=== PATIENT | female | born 1955 | race Caucasian/White ===

== ENCOUNTER 2016-06-27 18:10 | Inpatient (IN) | payer BC ==
[~2016-06-27] VITALS: Ht 142.2 cm; Wt 37.5 kg
[~2016-06-27 18:10] MED LIST: ASMANEX TW200 MICRO1 IH; CALAN SR,COVER240 MG PO; DUONEB 2.5-0.5 M3 ML IH; ERGOCALCIF50000 UNIT PO; HYDROCODON-ACE1 EAC7 PO; LASIX20 MG PO; LASIX40 MG PO; LEVOFLOXACIN750 MG PO; LOVENOX40 MG/0.4 SC; PANTOPRAZOLE SO40 MG PO; PREDNISONE20 MG PO; PROTONIX40 MG PO; VENTOLIN HFA18 GM IH; VITAMIN B-12; VITAMIN B-122500 MCG SL; VITAMIN D250000 UNIT PO; ZITHROMAX Z-PA250 MG PO
[2016-06-27 18:53] LABS: HEMATOCRIT 35.3 % (36.0-46.0); MCH 31.2 PG (29.0-34.0); MCHC 34.6 G/DL (30.0-36.0); MCV 90.3 FL (83-99); MEAN PLAT.VOLUME 8.8 uM^3 (9.5-12.4); PLATELET COUNT 308 K/uL (156-360); RBC DIS.WIDTH-CV 13.5 % (11.8-14.6); RBC DIS.WIDTH-SD 44.3 % (39-53); RED BLOOD COUNT 3.91 M/uL (3.80-5.20)
[2016-06-27 19:01] LABS: CHLORIDE 93 mEq/L (99-109); POTASSIUM 3.9 mEq/L (3.7-5.4); SODIUM 132 mEq/L (136-147)
[2016-06-27 19:03] LABS: GLUCOSE 173 mg/dL (70-99)
[2016-06-27 19:04] LABS: ANION GAP 13 MEQ/L (2-14)
[2016-06-27 19:07] LABS: GFR ESTIMATE (CALCULATED) > 59 mL/min/
[2016-06-27 19:08] LABS: UREA NITROGEN (BUN) 11 mg/dL (9-23)
[2016-06-27] MEDS ORDERED: FUROSEMIDE20 MG PO (19:50)
[2016-06-27] MEDS ORDERED: VITAMIN B12 IM (19:53)
[2016-06-27] MEDS ORDERED: SODIUM PO (19:54)
[2016-06-27] MEDS ORDERED: CYANOCOBAL1000 MCG/2 IM (22:00)
[2016-06-27] MEDS ORDERED: SPIRIVA RESPIMAT4 GM IH (22:03)
[2016-06-27] MEDS ORDERED: VOLTAREN 1% GE100 GM TP (22:04)
[2016-06-28 06:03] LABS: CHLORIDE 100 mEq/L (99-109); POTASSIUM 3.1 mEq/L (3.7-5.4); SODIUM 132 mEq/L (136-147)
[2016-06-28 06:06] LABS: ANION GAP 8 MEQ/L (2-14)
[2016-06-28 06:07] LABS: GLUCOSE 93 mg/dL (70-99)
[2016-06-28 06:08] LABS: GFR ESTIMATE (CALCULATED) > 59 mL/min/
[2016-06-28 06:09] LABS: UREA NITROGEN (BUN) 8 mg/dL (9-23)
[2016-06-28 06:21] LABS: BASOPHIL COUNT 0.1 K/uL (0-0.1); EOSINOPHIL (%) 0 % (0-5); HEMATOCRIT 28.2 % (36.0-46.0); IMMATURE GRANULOCYTE (%) 0.9 % (0.0-0.7); IMMATURE GRANULOCYTE COUNT 0.3 K/uL; INSTRUMENT ABS NEUTROPHIL CT 26.8 K/uL; LYMPHOCYTE COUNT 1.1 K/uL (1.0-2.8); MCH 31.1 PG (29.0-34.0); MCHC 34.8 G/DL (30.0-36.0); MCV 89.5 FL (83-99); MEAN PLAT.VOLUME 8.7 uM^3 (9.5-12.4); MONOCYTE (%) 4.1 % (3-12); MONOCYTE COUNT 1.2 K/uL (0-0.8); NEUTROPHIL (%) 90.9 % (45-76); NEUTROPHIL COUNT 26.8 K/uL (1.8-6.4); PLATELET COUNT 246 K/uL (156-360); RBC DIS.WIDTH-CV 13.7 % (11.8-14.6); RBC DIS.WIDTH-SD 44.6 % (39-53); RED BLOOD COUNT 3.15 M/uL (3.80-5.20); WHITE BLOOD COUNT 29.5 K/uL (4.1-10.2)
[2016-06-28 07:01] LABS: ABS NEUTROPHIL COUNT 27.7; ATYPICAL LYMPHOCYTE 3.5 %; BAND NEUTROPHILS 34.2 % (0-8.0); EOSINOPHIL ABS CT 0; LYMPHOCYTES 1.8 % (15.0-45.0); PLAT.SUFFICIENCY ADEQUATE; SEG.NEUTROPHILS 59.6 % (46.0-76.0); TOX.VACUOLIZATION 1+; TOXIC GRANULATION 2+
[2016-06-28] MEDS ORDERED: [UNRECOGNIZED DRUG - REMARK] PO (10:18)
[2016-06-28 12:05] LABS: ADD MIUA? YES; BILIRUBIN NEGATIVE; BLOOD NEGATIVE; COLOR YELLOW ((YELLOW)); GLUCOSE (STRIP) NEGATIVE; KETONES NEGATIVE; LEUKOCYTES NEGATIVE; NITRITE NEGATIVE; PROTEIN (STRIP) 30; SPECIFIC GRAVITY 1.012 (1.000-1.030)
[2016-06-28 12:14] LABS: BACTERIA NONE SEEN /HPF; CALCIUM OXALATE CRYSTALS 3+ /HPF; EPITHELIAL CELLS 2+ /HPF; MUCUS NONE SEEN /LPF; RED BLOOD CELLS 0-5 /HPF (0-5); UCUL ADDED? NO; WHITE BLOOD CELLS 0-5 /HPF (0-5)
[2016-06-28 18:51] VITALS: BP 101/66
[2016-06-29] VITALS: BP 114/66
[2016-06-29 03:29] VITALS: BP 96/59
[2016-06-29 06:56] LABS: INTERNAL CONTROL VALID? YES
[2016-06-29 08:02] VITALS: BP 95/57
[2016-06-29 10:39] LABS: HEMATOCRIT 28.2 % (36.0-46.0); MCHC 33.7 G/DL (30.0-36.0); MCV 92.2 FL (83-99); MEAN PLAT.VOLUME 9.1 uM^3 (9.5-12.4); PLATELET COUNT 259 K/uL (156-360); RBC DIS.WIDTH-CV 13.8 % (11.8-14.6); RBC DIS.WIDTH-SD 47.2 % (39-53); RED BLOOD COUNT 3.06 M/uL (3.80-5.20)
[2016-06-29 11:02] LABS: ANION GAP 10 MEQ/L (2-14); CHLORIDE 98 MEQ/L (99-109); GFR ESTIMATE (CALCULATED) > 59 mL/min/; POTASSIUM 3.2 MEQ/L (3.7-5.4); SAMPLE HEMOLYSIS CHECK 0; SAMPLE ICTERIC CHECK 0; SAMPLE LIPEMIA CHECK 0; SODIUM 132 MEQ/L (136-147); UREA NITROGEN (BUN) 7 mg/dL (9-23)
[2016-06-29 11:03] LABS: GLUCOSE 117 mg/dL (70-99)
[2016-06-29 11:09] VITALS: BP 99/55
[2016-06-29 14:14] LABS: ABS NEUTROPHIL COUNT 21.8; ATYPICAL LYMPHOCYTE 0.9 %; EOSINOPHIL ABS CT 0; LYMPHOCYTES 3.6 % (15.0-45.0)
[2016-06-29 14:28] LABS: BAND NEUTROPHILS 13.5 % (0-8.0); SEG.NEUTROPHILS 81.1 % (46.0-76.0)
[2016-06-29 14:58] VITALS: BP 100/56
[2016-06-29 20:00] VITALS: BP 123/69
[2016-06-30 00:17] VITALS: BP 117/65
[2016-06-30 04:00] VITALS: BP 116/66
[2016-06-30 07:25] VITALS: BP 137/79
[2016-06-30 08:31] LABS: ANION GAP 12 MEQ/L (2-14); CHLORIDE 99 MEQ/L (99-109); GFR ESTIMATE (CALCULATED) > 59 mL/min/; GLUCOSE 99 mg/dL (70-99); POTASSIUM 2.7 MEQ/L (3.7-5.4); SAMPLE HEMOLYSIS CHECK 0; SAMPLE ICTERIC CHECK 0; SAMPLE LIPEMIA CHECK 0; SODIUM 136 MEQ/L (136-147); UREA NITROGEN (BUN) 6 mg/dL (9-23)
[2016-06-30 08:39] LABS: MCH 30.9 PG (29.0-34.0); MCHC 33.4 G/DL (30.0-36.0); MCV 92.4 FL (83-99); MEAN PLAT.VOLUME 9.5 uM^3 (9.5-12.4); PLATELET COUNT 282 K/uL (156-360); RBC DIS.WIDTH-SD 47.4 % (39-53); RED BLOOD COUNT 3.14 M/uL (3.80-5.20)
[2016-06-30 08:41] LABS: WHITE BLOOD COUNT 14.3 K/uL (4.1-10.2)
[2016-06-30 09:54] LABS: EOSINOPHIL (%) 0.1 % (0-5); HEMATOLOGY COMMENT 1 SMEAR COMPATIBLE; IMMATURE GRANULOCYTE (%) 0.5 % (0.0-0.7); IMMATURE GRANULOCYTE COUNT 0.1 K/uL; INSTRUMENT ABS NEUTROPHIL CT 12.1 K/uL; LYMPHOCYTE COUNT 1.1 K/uL (1.0-2.8); MONOCYTE (%) 6.9 % (3-12); NEUTROPHIL (%) 84.7 % (45-76); NEUTROPHIL COUNT 12.1 K/uL (1.8-6.4); PLAT.SUFFICIENCY ADEQUATE
[2016-06-30 11:21] VITALS: BP 156/81
[2016-06-30 15:06] VITALS: BP 112/61
[2016-06-30 19:38] VITALS: BP 105/61
[2016-07-01 00:08] VITALS: BP 109/56
[2016-07-01 03:40] VITALS: BP 114/59
[2016-07-01 07:20] LABS: EOSINOPHIL (%) 0.1 % (0-5); HEMATOCRIT 26.1 % (36.0-46.0); IMMATURE GRANULOCYTE (%) 0.3 % (0.0-0.7); INSTRUMENT ABS NEUTROPHIL CT 6.4 K/uL; LYMPHOCYTE COUNT 1.4 K/uL (1.0-2.8); MCH 30.5 PG (29.0-34.0); MCHC 33.3 G/DL (30.0-36.0); MCV 91.6 FL (83-99); MEAN PLAT.VOLUME 9.1 uM^3 (9.5-12.4); MONOCYTE (%) 16.5 % (3-12); MONOCYTE COUNT 1.5 K/uL (0-0.8); NEUTROPHIL (%) 68.5 % (45-76); NEUTROPHIL COUNT 6.4 K/uL (1.8-6.4); PLATELET COUNT 254 K/uL (156-360); RBC DIS.WIDTH-CV 13.7 % (11.8-14.6); RBC DIS.WIDTH-SD 45.8 % (39-53); RED BLOOD COUNT 2.85 M/uL (3.80-5.20)
[2016-07-01 07:26] LABS: WHITE BLOOD COUNT 9.3 K/uL (4.1-10.2)
[2016-07-01 07:33] LABS: ANION GAP 10 MEQ/L (2-14); CHLORIDE 102 MEQ/L (99-109); GFR ESTIMATE (CALCULATED) > 59 mL/min/; GLUCOSE 73 mg/dL (70-99); SAMPLE HEMOLYSIS CHECK 0; SAMPLE ICTERIC CHECK 0; SAMPLE LIPEMIA CHECK 0; SODIUM 137 MEQ/L (136-147); UREA NITROGEN (BUN) 5 mg/dL (9-23)
[2016-07-01 07:37] LABS: POTASSIUM 3.5 MEQ/L (3.7-5.4)
[2016-07-01 08:01] VITALS: BP 125/82
[2016-07-01 12:18] VITALS: BP 120/75
[2016-07-01 14:38] VITALS: BP 118/82
[2016-07-01] MEDS ORDERED: CEFDINIR300 MG PO (14:46)
== END 2016-07-01 15:25 | disposition home or self-care (01) | DRG 871 ==
LOC: EME 18:10 → EXP 18:10 → 5SOUTH 20:57 → EDOF 20:57 → 5SOUTH 06-28 14:15
PROVIDERS: Internal Medicine; Physician Assistant; Physician Assistant Medical
DX: A41.9 Sepsis, unspecified organism (principal); J18.9 Pneumonia, unspecified organism; J44.0 Chronic obstructive pulmonary disease with (acute) lower respiratory infection; E87.6 Hypokalemia; I10 Essential (primary) hypertension; F17.200 Nicotine dependence, unspecified, uncomplicated; Z88.6 Allergy status to analgesic agent; Z88.8 Allergy status to other drugs, medicaments and biological substances; Z72.89 Other problems related to lifestyle
CPT/HCPCS: 71020; 80048; 81003; 83605; 85025; 85027; 87040; 87070; 87205; 87449; 94640; 94640 76; 99202; 99281; 99285; J0456; J0696; J1200; J1885; J1956; J2270; J3480; J7030; J7040; J7050; J7120

== ENCOUNTER → 2016-11-01 | Outpatient (CLI) | payer OTHER, BC ==
[~2016-11-01] MED LIST changes: +CEFDINIR300 MG PO; +CYANOCOBAL1000 MCG/2 IM; +FUROSEMIDE20 MG PO; +SODIUM PO; +SPIRIVA RESPIMAT4 GM IH; +VITAMIN B12 IM; +VOLTAREN 1% GE100 GM TP; +[UNRECOGNIZED DRUG - REMARK] PO
== END | disposition home or self-care (01) ==
LOC: RES 07:51
DX: Z02.71 Encounter for disability determination (principal)
CPT/HCPCS: 94060; 94729; 94760

== ENCOUNTER 2016-11-27 08:53 | Emergency (ER) | payer BC ==
[~2016-11-27] VITALS: Ht 147.3 cm; Wt 36.7 kg
[2016-11-27] MEDS ORDERED: KEFLEX500 MG PO (09:30)
[2016-11-27 09:55] VITALS: BP 133/74
== END 2016-11-27 09:55 | disposition home or self-care (01) ==
LOC: EME 08:53
DX: L23.5 Allergic contact dermatitis due to other chemical products (principal); T50.905A Adverse effect of unspecified drugs, medicaments and biological substances, initial encounter; J44.9 Chronic obstructive pulmonary disease, unspecified; I10 Essential (primary) hypertension; F17.200 Nicotine dependence, unspecified, uncomplicated
CPT/HCPCS: 99281; 99284

== ENCOUNTER 2016-12-22 14:58 | Observation (INO) | payer BC ==
[~2016-12-22] VITALS: Ht 147.3 cm; Wt 41.6 kg
[~2016-12-22 14:58] MED LIST changes: +KEFLEX500 MG PO
[2016-12-22 16:00] LABS: HEMATOCRIT 36.4 % (36.0-46.0); MCH 30.5 PG (29.0-34.0); MCHC 35.4 G/DL (30.0-36.0); MCV 86.1 FL (83-99); MEAN PLAT.VOLUME 8.4 uM^3 (9.5-12.4); PLATELET COUNT 273 K/uL (156-360); RBC DIS.WIDTH-CV 15.2 % (11.8-14.6); RED BLOOD COUNT 4.23 M/uL (3.80-5.20); WHITE BLOOD COUNT 7.8 K/uL (4.1-10.2)
[2016-12-22 16:08] LABS: CHLORIDE 83 mEq/L (99-109); POTASSIUM 3.1 mEq/L (3.7-5.4); SODIUM 127 mEq/L (136-147)
[2016-12-22 16:10] LABS: GLUCOSE 113 mg/dL (70-99)
[2016-12-22 16:12] LABS: ANION GAP 14 MEQ/L (2-14)
[2016-12-22 16:14] LABS: GFR ESTIMATE (CALCULATED) > 59 mL/min/
[2016-12-22 16:15] LABS: UREA NITROGEN (BUN) 6 mg/dL (9-23)
[2016-12-22 16:21] LABS: TROP-I INTERPRETATION NEGATIVE; TROPONIN-I < 0.01 ng/mL (0.0-0.30)
[2016-12-22 17:25] LABS: INFLUENZA A VIRAL ANTIGEN NEGATIVE; INFLUENZA B VIRAL ANTIGEN NEGATIVE
[2016-12-22] MEDS ORDERED: KEFLEX500 MG PO (18:17)
[2016-12-22] MEDS ORDERED: ADVAIR 250/501 DISK IH (18:24)
[2016-12-22] MEDS ORDERED: LASIX40 MG PO (18:24)
[2016-12-22] MEDS ORDERED: BETAMETHASONE D45 GM TP (18:25)
[2016-12-22 18:26] LABS: ADD MIUA? YES; BILIRUBIN NEGATIVE; BLOOD SMALL; COLOR YELLOW ((YELLOW)); GLUCOSE (STRIP) NEGATIVE; KETONES NEGATIVE; LEUKOCYTES LARGE; NITRITE NEGATIVE; PROTEIN (STRIP) 30; SPECIFIC GRAVITY 1.004 (1.000-1.030); UROBILINOGEN 0.2 MG/DL (0.2-1.0)
[2016-12-22 18:43] LABS: BACTERIA RARE /HPF; EPITHELIAL CELLS 1+ /HPF; MUCUS NONE SEEN /LPF; RED BLOOD CELLS 20-30 /HPF (0-5); WHITE BLOOD CELLS TNTC /HPF (0-5)
[2016-12-22 20:23] LABS: SODIUM 130 mEq/L (136-147)
[2016-12-22 20:27] LABS: ANION GAP 10 MEQ/L (2-14); TOTAL BILIRUBIN 0.5 mg/dL (0.0-1.0)
[2016-12-22 20:29] LABS: ALKALINE PHOSPHATASE 76 IU/L (3-129); GFR ESTIMATE (CALCULATED) > 59 mL/min/
[2016-12-22 20:30] LABS: CHLORIDE 94 mEq/L (99-109); GLUCOSE 170 mg/dL (70-99); POTASSIUM 4.1 mEq/L (3.7-5.4); UREA NITROGEN (BUN) 5 mg/dL (9-23)
[2016-12-22 20:31] LABS: DIRECT BILIRUBIN 0.3 mg/dL (0.0-0.3)
[2016-12-22 23:42] LABS: TROP-I INTERPRETATION NEGATIVE; TROPONIN-I < 0.01 ng/mL (0.0-0.30)
[2016-12-23 00:56] VITALS: BP 128/78
[2016-12-23 04:30] VITALS: BP 120/64
[2016-12-23 05:50] LABS: HEMATOCRIT 33.4 % (36.0-46.0); MCH 31.3 PG (29.0-34.0); MCHC 35.6 G/DL (30.0-36.0); MCV 87.9 FL (83-99); MEAN PLAT.VOLUME 8.9 uM^3 (9.5-12.4); PLATELET COUNT 261 K/uL (156-360); RBC DIS.WIDTH-CV 15.9 % (11.8-14.6); RBC DIS.WIDTH-SD 51.1 % (39-53); WHITE BLOOD COUNT 5.1 K/uL (4.1-10.2)
[2016-12-23 06:26] LABS: ANION GAP 5 MEQ/L (2-14); CHLORIDE 94 MEQ/L (99-109); GFR ESTIMATE (CALCULATED) > 59 mL/min/; GLUCOSE 133 mg/dL (70-99); POTASSIUM 3.6 MEQ/L (3.7-5.4); SAMPLE HEMOLYSIS CHECK 0; SAMPLE ICTERIC CHECK 0; SAMPLE LIPEMIA CHECK 0; SODIUM 131 MEQ/L (136-147); UREA NITROGEN (BUN) 5 mg/dL (9-23)
[2016-12-23 06:28] LABS: TROP-I INTERPRETATION NEGATIVE; TROPONIN-I < 0.01 ng/mL (0.0-0.30)
[2016-12-23 07:43] VITALS: BP 128/70
[2016-12-23] MEDS ORDERED: AZITHROMYCIN500 M1 PO (09:59)
[2016-12-23] MEDS ORDERED: PREDNISONE10 MG PO (10:05)
[2016-12-23] MEDS ORDERED: MEDROL DOSEPAK4 MG PO (10:05)
[2016-12-23 11:24] VITALS: BP 124/72
[2016-12-23] MEDS ORDERED: BACTRIM,SEPT1 TABLET PO (14:49)
== END 2016-12-23 11:32 | disposition home or self-care (01) ==
LOC: EME 14:58 → 5EAST 19:02 → EDOF 19:02 → ENRESERV 19:10 → CANRESERV 19:10 → ENRESERV 19:19 → 5EAST 21:10
PROVIDERS: Hospitalist; Physician Assistant
DX: J44.1 Chronic obstructive pulmonary disease with (acute) exacerbation (principal); R09.02 Hypoxemia; F17.200 Nicotine dependence, unspecified, uncomplicated; N39.0 Urinary tract infection, site not specified; E87.6 Hypokalemia; E87.1 Hypo-osmolality and hyponatremia; I10 Essential (primary) hypertension; I70.0 Atherosclerosis of aorta; K21.9 Gastro-esophageal reflux disease without esophagitis; Z86.19 Personal history of other infectious and parasitic diseases; Z87.01 Personal history of pneumonia (recurrent); Z86.718 Personal history of other venous thrombosis and embolism; Z82.49 Family history of ischemic heart disease and other diseases of the circulatory system; R00.0 Tachycardia, unspecified; R49.0 Dysphonia
CPT/HCPCS: 71020; 71275; 80048; 80048 91; 80076; 81003; 82436; 83605; 83930; 83935; 84133; 84300; 84443; 84484; 85027; 87040; 87502; 93005; 94640; 94640 76; 94799; 99202; 99281; 99284; G0378; J0696; J1650; J2930; J7030; J7050

== ENCOUNTER 2016-12-29 08:18 | Inpatient (IN) | payer BC ==
[~2016-12-29] VITALS: Ht 147.3 cm; Wt 37.5 kg
[~2016-12-29 08:18] MED LIST changes: +ADVAIR 250/501 DISK IH; +AZITHROMYCIN500 M1 PO; +BACTRIM,SEPT1 TABLET PO; +BETAMETHASONE D45 GM TP; +MEDROL DOSEPAK4 MG PO; +PREDNISONE10 MG PO
[2016-12-29 09:00] LABS: HEMATOCRIT 36.5 % (36.0-46.0); MCH 29.6 PG (29.0-34.0); MCHC 34.5 G/DL (30.0-36.0); MCV 85.7 FL (83-99); MEAN PLAT.VOLUME 8.4 uM^3 (9.5-12.4); PLATELET COUNT 346 K/uL (156-360); RBC DIS.WIDTH-CV 15.1 % (11.8-14.6); RBC DIS.WIDTH-SD 47.5 % (39-53); RED BLOOD COUNT 4.26 M/uL (3.80-5.20); WHITE BLOOD COUNT 12.8 K/uL (4.1-10.2)
[2016-12-29 09:05] LABS: CHLORIDE 89 mEq/L (99-109); POTASSIUM 3.5 mEq/L (3.7-5.4); SODIUM 132 mEq/L (136-147)
[2016-12-29 09:07] LABS: GLUCOSE 102 mg/dL (70-99)
[2016-12-29 09:08] LABS: ANION GAP 12 MEQ/L (2-14)
[2016-12-29 09:11] LABS: GFR ESTIMATE (CALCULATED) > 59 mL/min/
[2016-12-29 09:12] LABS: UREA NITROGEN (BUN) 6 mg/dL (9-23)
[2016-12-29 09:17] LABS: TROP-I INTERPRETATION NEGATIVE; TROPONIN-I < 0.01 ng/mL (0.0-0.30)
[2016-12-29] MEDS ORDERED: MEDROL DOSEPAK4 MG PO (12:16)
[2016-12-29] MEDS ORDERED: METHYLPREDNISOLO4 M1 PO (12:17)
[2016-12-29] MEDS ORDERED: VERAPAMIL HCL240 MG PO (12:18)
[2016-12-29] MEDS ORDERED: LASIX20 MG PO (12:19)
[2016-12-29 12:40] VITALS: BP 136/79
[2016-12-29 15:12] VITALS: BP 125/71
[2016-12-29 19:42] VITALS: BP 133/77
[2016-12-29 23:50] VITALS: BP 111/70
[2016-12-30 03:48] VITALS: BP 114/63
[2016-12-30 06:06] LABS: HEMATOCRIT 31.7 % (36.0-46.0); MCH 31.3 PG (29.0-34.0); MCHC 35.3 G/DL (30.0-36.0); MCV 88.5 FL (83-99); MEAN PLAT.VOLUME 8.3 uM^3 (9.5-12.4); PLATELET COUNT 309 K/uL (156-360); RBC DIS.WIDTH-CV 15.6 % (11.8-14.6); RBC DIS.WIDTH-SD 50.5 % (39-53); RED BLOOD COUNT 3.58 M/uL (3.80-5.20); WHITE BLOOD COUNT 6.3 K/uL (4.1-10.2)
[2016-12-30 06:29] LABS: ALKALINE PHOSPHATASE 48 IU/L (3-129); ANION GAP 8 MEQ/L (2-14); CHLORIDE 94 MEQ/L (99-109); GFR ESTIMATE (CALCULATED) > 59 mL/min/; GLUCOSE 131 mg/dL (70-99); POTASSIUM 3.7 MEQ/L (3.7-5.4); SAMPLE HEMOLYSIS CHECK 0; SAMPLE ICTERIC CHECK 0; SAMPLE LIPEMIA CHECK 0; SODIUM 134 MEQ/L (136-147); TOTAL BILIRUBIN 0.7 MG/DL (0.0-1.0); UREA NITROGEN (BUN) 8 mg/dL (9-23)
[2016-12-30 07:49] VITALS: BP 124/63
[2016-12-30 11:39] VITALS: BP 103/58
[2016-12-30 16:00] VITALS: BP 138/71
[2016-12-30 19:29] VITALS: BP 125/61
[2016-12-31 00:24] VITALS: BP 119/61
[2016-12-31 04:26] VITALS: BP 108/67
[2016-12-31 07:45] VITALS: BP 125/71
[2016-12-31] MEDS ORDERED: PREDNISONE10 M1 PO (13:08)
== END 2016-12-31 13:40 | disposition home health service (06) | DRG 192 ==
LOC: EME 08:18 → EDOF 11:14 → ENRESERV 11:20 → 2EASTP 12:25
PROVIDERS: Hospitalist
DX: J44.1 Chronic obstructive pulmonary disease with (acute) exacerbation (principal); R09.02 Hypoxemia; F17.200 Nicotine dependence, unspecified, uncomplicated; I10 Essential (primary) hypertension; K21.9 Gastro-esophageal reflux disease without esophagitis; Z86.718 Personal history of other venous thrombosis and embolism; M62.50 Muscle wasting and atrophy, not elsewhere classified, unspecified site; Z99.81 Dependence on supplemental oxygen
CPT/HCPCS: 71020; 80048; 80053; 84484; 85027; 90686; 93005; 94640; 94640 76; 94799; 99202; 99281; 99285; J1644; J2930; J7030; J7512

== ENCOUNTER 2017-01-26 10:49 | Emergency (ER) | payer BC ==
[~2017-01-26] VITALS: Ht 147.3 cm; Wt 39.9 kg
[~2017-01-26 10:49] MED LIST changes: +METHYLPREDNISOLO4 M1 PO; +PREDNISONE10 M1 PO; +VERAPAMIL HCL240 MG PO
[2017-01-26] MEDS ORDERED: ZITHROMAX Z-PA250 MG PO (13:27)
[2017-01-26 13:37] VITALS: BP 122/78
== END 2017-01-26 13:39 | disposition home or self-care (01) ==
LOC: EME 10:49
DX: J44.0 Chronic obstructive pulmonary disease with (acute) lower respiratory infection (principal); J20.9 Acute bronchitis, unspecified; I10 Essential (primary) hypertension; Z87.891 Personal history of nicotine dependence; Z88.8 Allergy status to other drugs, medicaments and biological substances
CPT/HCPCS: 71020; 99281; 99283

== ENCOUNTER 2017-06-27 01:34 | Emergency (ER) | payer BC ==
[~2017-06-27] VITALS: Ht 147.3 cm; Wt 37.3 kg
[2017-06-27 01:35] VITALS: BP 109/70
[2017-06-27 02:16] LABS: HEMOGLOBIN 11.2 G/DL (11.9-15.5); MCHC 36.1 G/DL (30.0-36.0); MCV 85.9 FL (83-99); PLATELET COUNT 287 K/uL (156-360); RBC DIS.WIDTH-CV 13.5 % (11.8-14.6); RBC DIS.WIDTH-SD 42.3 % (39-53); RED BLOOD COUNT 3.61 M/uL (3.80-5.20); WHITE BLOOD COUNT 6.3 K/uL (4.1-10.2)
[2017-06-27 02:26] LABS: CHLORIDE 89 mEq/L (99-109); SODIUM 129 mEq/L (136-147)
[2017-06-27 02:28] LABS: GLUCOSE 71 mg/dL (70-99)
[2017-06-27 02:31] LABS: CREATININE 0.5 mg/dL (0.6-1.3); GFR ESTIMATE (CALCULATED) > 59 mL/min/
[2017-06-27 02:32] LABS: UREA NITROGEN (BUN) 4 mg/dL (9-23)
[2017-06-27 02:36] LABS: TROP-I INTERPRETATION NEGATIVE; TROPONIN-I < 0.01 ng/mL (0.0-0.30)
== END 2017-06-27 02:55 | disposition left against medical advice (07) ==
LOC: EME 01:34
DX: R06.02 Shortness of breath (principal); R05 Cough; Z53.21 Procedure and treatment not carried out due to patient leaving prior to being seen by health care provider
CPT/HCPCS: 71046; 80048; 84484; 85027; 93005